=== PATIENT | male | born 1980 | race African-American/Black ===

== ENCOUNTER 2018-06-27 13:27 | Emergency (ER) | payer OTHER ==
[~2018-06-27] VITALS: Ht 193 cm; Wt 126.0 kg
[~2018-06-27 13:27] MED LIST: CARV6.2548 PO; GABA-531 PO; GLIP10TA10 PO; HUMALOG SUBCUT; INSU3INS6 SQ; LISI-604 PO; POTA10CA42 PO; SODI45SP35 BOTHNSTRLS; [UNRECOGNIZED DRUG - OTHER] PO
[2018-06-27 14:31] VITALS: BP 148/90
[2018-06-27 17:18] LABS: CLARITY URINE CLOUDY (CLEAR); COLOR URINE YELLOW (YELLOW); KETONES URINE NEGATIVE (NEGATIVE); LEUKOCYTE ESTERASE URINE NEGATIVE (NEGATIVE); NITRITE URINE NEGATIVE (NEGATIVE); OCCULT BLOOD URINE 2+ (NEGATIVE); PROTEIN URINE 4+ (NEGATIVE); SPECIFIC GRAVITY URINE 1.025 (1.005-1.030); UROBILINOGEN URINE 0.2 E.U./dL (0.2-1.0)
== END 2018-06-27 20:49 | disposition left against medical advice (07) ==
LOC: ER 13:27
DX: R11.2 Nausea with vomiting, unspecified (principal); E11.9 Type 2 diabetes mellitus without complications
CPT/HCPCS: 82962; 99283